=== PATIENT | female | born 1935 | race Caucasian/White ===

== ENCOUNTER 2020-07-31 11:13 | Inpatient (IN) | payer OTHER ==
[~2020-07-31] VITALS: Ht 167.6 cm; Wt 60.4 kg
--- NOTE | ~2020-07-31 | OP ---
[facility] [address] [place] [address] OPERATIVE REPORT Name: NOAM NIXON Room: [address] IN [facility]#: [id number] Admission: 07/31/20 Attend Phys: Ofe Mcknight MD Discharge: Date of : 33 Report #: [id number] THIS REPORT FOR: cc: Chioma Morales Tammy RNP ~ Jagjit Dillon DO DICTATED BY: Moi Langston DO DATE OF SERVICE: 08/01/2020 PREOPERATIVE DIAGNOSIS: Right closed displaced subtrochanteric femur fracture. POSTOPERATIVE DIAGNOSIS: Right closed displaced subtrochanteric femur fracture. PROCEDURE PERFORMED: Surgical fixation of right subtrochanteric femur fracture with long cephalomedullary nail. ORTHOPEDIC IMPLANTS: [place] cephalomedullary nail 11 x 420 mm x 125 degrees with 95 mm lag screw and two distal interlock screws measuring 50 and 57.5 mm. SURGEON: Jagjit Dillon DO ASSISTANTS: Moi Langston DO; Jono Saavedra DO; Madonna Roche DO ANESTHESIA: General. ESTIMATED BLOOD LOSS: 100 mL. DRAINS: None. SPECIMENS: None. COMPLICATIONS: None. CONDITION: The patient is stable. DISPOSITION: PACU and to Med/Surg telemetry floor. ANTIBIOTICS: A 2 g Ancef IV piggyback prior to the procedure. INDICATIONS FOR PROCEDURE: The patient is a pleasant 85-year-old female who had a fall at home sustaining a right hip fracture. She was evaluated in the Emergency Department where the x-rays demonstrated fracture. She was admitted for further care. She was cleared by Medicine and Cardiology team prior to surgery. She was informed of the risks, benefits, indication, and complications [address] [address] OPERATIVE REPORT Name: NOAM NIXON Room: [address] [facility].#: [id number] Admission: 07/31/20 Attend Phys: Ofe Mcknight MD Discharge: Date of : 34 Report #: [id number] associated with surgery including but not limited to infection, wound healing complications, nonunion, malunion, rotational abnormalities, leg length discrepancy, hardware pain, need for extended antibiotics, need for revision surgery, DVT, PE, complications with anesthesia, even and other possibilities. The patient demonstrated good understanding and wanted to proceed with surgery. Consent was signed. OPERATIVE FINDINGS: Multiplanar evaluation with intraoperative fluoroscopy demonstrated a three-part subtrochanteric femur fracture that was able to be reduced and nailed appropriately intraoperatively. DESCRIPTION OF PROCEDURE: I met with the patient in the preoperative suite and the correct right lower extremity was marked. The patient was taken to the operating room, given general anesthetic. She was then transferred to the [place] fracture table and positioned in the boot and stirrup on the right side and well-leg levine on the left side as well as a peroneal post. At this point, with the patient secured, intraoperative fluoroscopy confirmed adequate reduction of the fracture in a closed manner. Now, the right lower extremity was sterilely prepped and draped in standard fashion. At this point, a surgical timeout was completed, indicating correct patient, operative site, procedure to be performed. All in the room were in agreement and would like to proceed. Marked out standard proximal incision just proximal to the greater trochanter and skin incision was made with a 10-blade and then dissection was taken down to the level of the tensor fascia to the greater trochanter. Meraz scissors was utilized to open up the glutes in line with the incision. The starting awl was then positioned under C-arm fluoroscopy and the opening starting point was made. A ball-tipped guidewire was then passed down the awl, at this point measured for the nail and 420 mm was found to be appropriate. We began to ream sequentially starting with a 10 mm reamer up to a 13 mm reamer for the final size-11 nail. Next, the opening reamer was utilized proximally. At this point, the final nail was opened and passed on the back table and connected to the alignment jig and then passed down the femur over the guidewire. Confirmed adequate placement of the nail with fluoroscopy. Next, the ball-tipped guidewire was removed, used the double sleeve for the lag screw. Skin was incised and dissection taken down to the level of the lateral femur. With the double sleeve guide in place, the lag screw guidewire was then positioned, confirmed appropriate length. The reamer was then utilized to 95 mm and finally a 95 mm lag screw was positioned. Next compressed the fracture through the alignment guide and then the set screw was fixated tightly. At this point, proceeded to place the distal interlocks with a perfect poarch technique. Positioned two distal interlocks in the standard fashion, cutting the skin, drilling and measuring for the 50 and 57.5 mm screws. Final C-arm fluoroscopy images were taken. The wounds were all thoroughly irrigated after the alignment jig was removed. Closed the deep fascia with 0 Vicryl in a [id number] fashion. Next, the subcutaneous tissue was closed with a 2-0 [place] [address] OPERATIVE REPORT Name: NOAM NIXON Room: [address]#: [id number] Admission: 07/31/20 Attend Phys: Ofe Mcknight MD Discharge: Date of : 33 Report #: [id number] skin uday were utilized. Dressing consisted of Xeroform, 4 x 4 gauze, ABDs and Medipore tape for compressive dressing. The patient was awakened from anesthesia and transferred to PACU in stable condition. ATTESTATION: Dr. Dillon was present throughout all critical aspects of the case. POSTOPERATIVE CARE: The patient will be 50% weightbearing. She will work with the physical therapy and occupational therapy teams in order to make a safe discharge plan. DVT prophylaxis with mechanical and aspirin 325 mg b.i.d. By: 0944 1010Alaanna Dillon DO /nt
[2020-07-31 11:15] VITALS: BP 122/87
[2020-07-31] MEDS ORDERED: OMEPRAZOLE 20 M20 M1 PO (11:25)
[2020-07-31] MEDS ORDERED: BLADDER CONTROL MED (11:26)
[2020-07-31] MEDS ORDERED: LEVO-T75 MCG PO (11:26)
[2020-07-31 11:56] LABS: ABSOLUTE BASOPHILS 0.1 thou/uL (0.0-0.2); ABSOLUTE EOSINOPHILS 0.1 thou/uL (0.0-0.7); ABSOLUTE LYMPHOCYTES 2.4 thou/uL (0.8-5.3); ABSOLUTE MONOCYTES 0.5 thou/uL (0.0-1.2); ABSOLUTE NEUTROPHILS 7.3 thou/uL (1.6-8.1); BASOPHILS 0.9 %; EOSINOPHILS 1.4 %; HEMATOCRIT 39.8 % (37.0-47.0); HEMOGLOBIN 13.2 gm/dL (12.0-15.0); MCH 31.9 pg (26.0-34.0); MCHC 33.1 g/dL (28.0-37.0); MCV 96.3 fL (80.0-100.0); MONOCYTES 5.2 %; MPV 8.6 fl. (7.2-11.1); NUCLEATED RBCS 0 /100WBC; PLATELET COUNT* 182 thou/uL (150-400); POLYS 69.5 %; RBC 4.13 mil/uL (4.20-5.00); WBC 10.5 thou/uL (4.0-11.0)
[2020-07-31 12:04] LABS: CALCIUM 8.8 mg/dL (8.5-10.1); CREATININE 1.2 mg/dL (0.6-1.3); POTASSIUM 4.1 mmol/L (3.5-5.1)
[2020-07-31 12:08] LABS: ALBUMIN 3.2 g/dL (3.4-5.0); APTT 22.8 Seconds (25.0-31.3); PROTIME 10.8 Seconds (9.20-11.50); TOTAL BILIRUBIN 0.4 mg/dL (<0.1-1.0); TOTAL PROTEIN 7.5 g/dL (6.4-8.2)
[2020-07-31 12:23] LABS: URINE BILIRUBIN NEGATIVE (Negative); URINE BLOOD TRACE (Negative); URINE CLARITY CLEAR; URINE COLOR YELLOW; URINE GLUCOSE-RANDOM NEGATIVE (Negative); URINE KETONES NEGATIVE (Negative); URINE LEUKOCYTES-REFLEX NEGATIVE (Negative); URINE NITRITE-REFLEX NEGATIVE (Negative); URINE PROTEIN NEGATIVE (Negative); URINE SPECIFIC GRAVITY 1.025 (1.005-1.030); URINE UROBILINOGEN 0.2 E.U./dl (0.2-1.0)
--- NOTE | 2020-07-31 15:04 | EKG ---
[place] [address] ELECTROCARDIOGRAM REPORT Name: NOAM NIXON Room: [place] [address] ADM IN [facility].#: [id number] Admission: 07/31/20 Attend Phys: Ofe Mcknight, Discharge: Date of : 33 Date of Service: 07/31/20 1141 Report #: [id number] THIS REPORT FOR: //name// [facility] ED Test Date: 2020-07-31 Test Time: 11:41:20 Pat Name: NOAM NIXON Department: Room: [facility] Gender: F Qa Tester: GLADIS : 1935 Requested By: Melia Rich Order Number: [id number] MD: Prasanth Croft Measurements Intervals [place] Rate: 60 P: 74 PA: 175 QRS: 25 QRSD: 86 T: 65 QT: 427 QTc: 427 Interpretive Statements Sinus rhythm ST elevation, consider early repolarization No previous ECG available for comparison Electronically Signed On 07-31-2020 15:04:40 DRESS CUTTER by Prasanth Croft [email or web address] <ELECTRONICALLY SIGNED> By: Prasanth Croft MD, [facility] 07/31/20 1504 1141 1141 Prasanth Croft MD, [facility] /EPI
[2020-07-31 15:32] VITALS: BP 134/74
[2020-07-31 15:45] VITALS: BP 142/79
[2020-07-31 20:00] VITALS: BP 115/56
[2020-08-01 00:13] VITALS: BP 108/61
[2020-08-01 04:31] VITALS: BP 85/41
[2020-08-01 07:26] VITALS: BP 85/41
[2020-08-01 11:34] VITALS: BP 105/33
[2020-08-01 16:38] VITALS: BP 110/47
[2020-08-01 23:40] VITALS: BP 117/57
[2020-08-02 04:00] VITALS: BP 129/62
[2020-08-02 08:09] LABS: HEMATOCRIT 25.7 % (37.0-47.0)
[2020-08-02 08:12] LABS: HEMOGLOBIN 8.5 gm/dL (12.0-15.0)
[2020-08-02 11:44] VITALS: BP 100/57
[2020-08-02 16:14] VITALS: BP 134/70
[2020-08-02 20:48] VITALS: BP 137/56
[2020-08-03 00:12] VITALS: BP 134/64
[2020-08-03 04:23] LABS: ABSOLUTE LYMPHOCYTES 1.2 thou/uL (0.8-5.3); ABSOLUTE MONOCYTES 0.8 thou/uL (0.0-1.2); ABSOLUTE NEUTROPHILS 6.7 thou/uL (1.6-8.1); BASOPHILS 0.5 %; EOSINOPHILS 0.3 %; HEMATOCRIT 23.8 % (37.0-47.0); HEMOGLOBIN 8.1 gm/dL (12.0-15.0); LYMPHOCYTES 13.3 %; MCH 32.2 pg (26.0-34.0); MCHC 33.9 g/dL (28.0-37.0); MONOCYTES 8.6 %; MPV 9.4 fl. (7.2-11.1); NUCLEATED RBCS 0 /100WBC; POLYS 77.3 %; RDW-CV 13.1 % (10.5-14.5); WBC 8.7 thou/uL (4.0-11.0)
[2020-08-03 04:45] LABS: ALBUMIN 2.1 g/dL (3.4-5.0); CALCIUM 8.2 mg/dL (8.5-10.1); CREATININE 1.1 mg/dL (0.6-1.3); POTASSIUM 4.2 mmol/L (3.5-5.1); TOTAL BILIRUBIN 0.4 mg/dL (<0.1-1.0); TOTAL PROTEIN 5.6 g/dL (6.4-8.2)
[2020-08-03 04:49] VITALS: BP 135/60
[2020-08-03 05:04] LABS: PLATELET COUNT* 106 thou/uL (150-400)
[2020-08-03 08:00] VITALS: BP 118/53
[2020-08-03 13:51] VITALS: BP 122/41
[2020-08-03 16:17] VITALS: BP 138/54
[2020-08-04 00:19] VITALS: BP 133/52
[2020-08-04 04:41] VITALS: BP 126/66
[2020-08-04 08:00] VITALS: BP 124/52
[2020-08-04] MEDS ORDERED: TRAMADOL 50 MG50 MG PO (08:35)
[2020-08-04] MEDS ORDERED: ELIQUIS5 MG PO (08:35)
[2020-08-04] MEDS ORDERED: HYDROCODON-ACE1 EAC7 PO (08:35)
[2020-08-04] MEDS ORDERED: PROTONIX40 M2 PO (10:17)
[2020-08-04 15:50] VITALS: BP 139/50
[2020-08-04 19:50] VITALS: BP 152/83
[2020-08-05 07:46] VITALS: BP 127/64
[2020-08-05 08:31] LABS: ABSOLUTE BASOPHILS 0.1 thou/uL (0.0-0.2); ABSOLUTE EOSINOPHILS 0.3 thou/uL (0.0-0.7); ABSOLUTE LYMPHOCYTES 1.3 thou/uL (0.8-5.3); ABSOLUTE MONOCYTES 0.7 thou/uL (0.0-1.2); ABSOLUTE NEUTROPHILS 6.3 thou/uL (1.6-8.1); EOSINOPHILS 3.8 %; HEMATOCRIT 23.1 % (37.0-47.0); HEMOGLOBIN 7.7 gm/dL (12.0-15.0); MCH 31.6 pg (26.0-34.0); MCHC 33.4 g/dL (28.0-37.0); MCV 94.7 fL (80.0-100.0); MONOCYTES 7.8 %; MPV 8.5 fl. (7.2-11.1); NUCLEATED RBCS 0 /100WBC; PLATELET COUNT* 156 thou/uL (150-400); POLYS 72.4 %; RBC 2.44 mil/uL (4.20-5.00); RDW-CV 12.7 % (10.5-14.5); WBC 8.7 thou/uL (4.0-11.0)
[2020-08-05 08:38] LABS: CALCIUM 8.7 mg/dL (8.5-10.1); CREATININE 0.9 mg/dL (0.6-1.3)
[2020-08-05 15:48] VITALS: BP 139/65
[2020-08-05 19:30] VITALS: BP 144/74
[2020-08-06 08:00] VITALS: BP 169/68
[2020-08-06 15:50] VITALS: BP 129/57
[2020-08-06 20:20] VITALS: BP 132/66
[2020-08-07 07:50] VITALS: BP 129/64
== END 2020-08-07 15:10 | DRG 481 ==
LOC: M.ERS 11:13 → M.ORTHSURG 13:17 → M.TBA-ER 13:17 → M.2W 15:41 → M.ORTHSURG 08-03 14:36
PROVIDERS: Internal Medicine; Orthopaedic Surgery; Physician Assistant; ADMIT Internal Medicine; ATTEND Internal Medicine
PROC: 0QS606Z Reposition Right Upper Femur with Intramedullary Internal Fixation Device, Open Approach (ICD-10-PCS; principal; 2020-08-01)
DX: M80.051A Age-related osteoporosis with current pathological fracture, right femur, initial encounter for fracture (principal); D62 Acute posthemorrhagic anemia; E44.0 Moderate protein-calorie malnutrition; J98.11 Atelectasis; E03.9 Hypothyroidism, unspecified; I65.21 Occlusion and stenosis of right carotid artery; K44.9 Diaphragmatic hernia without obstruction or gangrene; E89.0 Postprocedural hypothyroidism; K21.9 Gastro-esophageal reflux disease without esophagitis; Z68.21 Body mass index [BMI] 21.0-21.9, adult; Z79.899 Other long term (current) drug therapy; Z20.822 Contact with and (suspected) exposure to COVID-19

== ENCOUNTER 2020-08-07 13:57 | Inpatient (IN) | payer OTHER ==
[~2020-08-07] VITALS: Ht 165.1 cm; Wt 60.6 kg
--- NOTE | ~2020-08-07 | PROC ---
[address] [address] PROCEDURE REPORT Name: NOAM NIXON Room: [address] IN ..#: [id number] Admission: 08/07/20 Attend Phys: Diego Etienne MD Discharge: Date of : 33 Report #: [id number] THIS REPORT FOR: cc: Chioma Morales Tammy RNP ~ [facility],Medical Records Staff For GI report, Please see the Provation report in Perceptive 7 content. By: 1439Medical Records Staff [facility] /MILVIA
[~2020-08-07 13:57] MED LIST: BLADDER CONTROL MED; ELIQUIS5 MG PO; HYDROCODON-ACE1 EAC7 PO; LEVO-T75 MCG PO; OMEPRAZOLE 20 M20 M1 PO; PROTONIX40 M2 PO; TRAMADOL 50 MG50 MG PO
[2020-08-07 15:30] VITALS: BP 117/47
[2020-08-07 19:34] VITALS: BP 121/62
[2020-08-08 04:57] LABS: ABSOLUTE BASOPHILS 0.1 thou/uL (0.0-0.2); ABSOLUTE EOSINOPHILS 0.4 thou/uL (0.0-0.7); ABSOLUTE LYMPHOCYTES 2.2 thou/uL (0.8-5.3); ABSOLUTE MONOCYTES 1.1 thou/uL (0.0-1.2); ABSOLUTE NEUTROPHILS 5.9 thou/uL (1.6-8.1); BASOPHILS 0.6 %; EOSINOPHILS 4.4 %; HEMATOCRIT 21.7 % (37.0-47.0); HEMOGLOBIN 7.3 gm/dL (12.0-15.0); LYMPHOCYTES 22.7 %; MCH 31.9 pg (26.0-34.0); MCHC 33.7 g/dL (28.0-37.0); MCV 94.7 fL (80.0-100.0); MONOCYTES 11.6 %; MPV 8.7 fl. (7.2-11.1); NUCLEATED RBCS 0 /100WBC; PLATELET COUNT* 230 thou/uL (150-400); POLYS 60.7 %; RBC 2.29 mil/uL (4.20-5.00); RDW-CV 12.9 % (10.5-14.5); WBC 9.8 thou/uL (4.0-11.0)
[2020-08-08 05:00] LABS: CALCIUM 9.4 mg/dL (8.5-10.1); CREATININE 1.2 mg/dL (0.6-1.3); POTASSIUM 4.2 mmol/L (3.5-5.1)
[2020-08-08 07:45] VITALS: BP 129/68
[2020-08-08 20:00] VITALS: BP 102/50
[2020-08-09 20:00] VITALS: BP 100/47
[2020-08-10] VITALS (7 sets, daily range): BP systolic 79–108; BP diastolic 38–53
[2020-08-10 11:41] LABS: HEMATOCRIT 23.5 % (37.0-47.0); HEMOGLOBIN 7.7 gm/dL (12.0-15.0); MCH 31.1 pg (26.0-34.0); MCHC 32.6 g/dL (28.0-37.0); MCV 95.3 fL (80.0-100.0); MPV 8.2 fl. (7.2-11.1); RBC 2.47 mil/uL (4.20-5.00); RDW-CV 13.1 % (10.5-14.5); WBC 11.6 thou/uL (4.0-11.0)
[2020-08-10 11:59] LABS: ALBUMIN 2.3 g/dL (3.4-5.0); CALCIUM 9.1 mg/dL (8.5-10.1); CREATININE 1.1 mg/dL (0.6-1.3); TOTAL BILIRUBIN 0.7 mg/dL (<0.1-1.0); TOTAL PROTEIN 5.9 g/dL (6.4-8.2)
[2020-08-11 08:00] VITALS: BP 115/49
[2020-08-11 19:00] VITALS: BP 108/53
[2020-08-12 06:04] LABS: MCH 31.2 pg (26.0-34.0); MCHC 32.3 g/dL (28.0-37.0); MCV 96.3 fL (80.0-100.0); MPV 8.4 fl. (7.2-11.1); RBC 2.05 mil/uL (4.20-5.00); RDW-CV 13.3 % (10.5-14.5); WBC 11.1 thou/uL (4.0-11.0)
[2020-08-12 06:37] LABS: CALCIUM 8.1 mg/dL (8.5-10.1); CREATININE 1.2 mg/dL (0.6-1.3); POTASSIUM 3.7 mmol/L (3.5-5.1)
[2020-08-12 06:45] LABS: HEMATOCRIT 19.8 % (37.0-47.0); HEMOGLOBIN 6.4 gm/dL (12.0-15.0)
[2020-08-12 08:00] VITALS: BP 99/41
[2020-08-12 10:53] VITALS: BP 100/37; BP 108/38; BP 109/44; BP 80/46; BP 96/35
[2020-08-12 15:59] LABS: HEMATOCRIT 28.1 % (37.0-47.0)
[2020-08-12 16:00] LABS: HEMOGLOBIN 9.1 gm/dL (12.0-15.0)
[2020-08-12 19:45] VITALS: BP 104/46
[2020-08-13 04:52] LABS: ABSOLUTE BASOPHILS 0.1 thou/uL (0.0-0.2); ABSOLUTE EOSINOPHILS 0.3 thou/uL (0.0-0.7); ABSOLUTE LYMPHOCYTES 1.9 thou/uL (0.8-5.3); ABSOLUTE MONOCYTES 1.1 thou/uL (0.0-1.2); ABSOLUTE NEUTROPHILS 9.7 thou/uL (1.6-8.1); BASOPHILS 0.7 %; HEMATOCRIT 23.4 % (37.0-47.0); HEMOGLOBIN 7.8 gm/dL (12.0-15.0); LYMPHOCYTES 14.2 %; MCH 30.6 pg (26.0-34.0); MCHC 33.2 g/dL (28.0-37.0); MCV 92.1 fL (80.0-100.0); MONOCYTES 8.7 %; MPV 8.3 fl. (7.2-11.1); NUCLEATED RBCS 0 /100WBC; PLATELET COUNT* 286 thou/uL (150-400); POLYS 74.4 %; RBC 2.54 mil/uL (4.20-5.00); RDW-CV 14.4 % (10.5-14.5); WBC 13.1 thou/uL (4.0-11.0)
[2020-08-13 08:56] VITALS: BP 105/60
[2020-08-13 12:47] LABS: URINE BLOOD 1+ (Negative); URINE CLARITY CLEAR; URINE COLOR YELLOW; URINE GLUCOSE-RANDOM NEGATIVE (Negative); URINE KETONES NEGATIVE (Negative); URINE LEUKOCYTES-REFLEX 1+ (Negative); URINE NITRITE-REFLEX NEGATIVE (Negative); URINE PROTEIN 1+ (Negative)
[2020-08-13 12:48] LABS: ICTOTEST (BILI CONFIRMATORY) Negative (Negative); URINE BILIRUBIN 1+ (Negative)
[2020-08-13 12:57] LABS: SQUAMOUS 0-3 Few /LPF (0-3); URINE RBC 3-10 Few /HPF (0-2); URINE WBC-REFLEX 6-15 Few /HPF (0-5)
[2020-08-13 12:58] LABS: BACTERIA-REFLEX 1-9 Few /HPF (None Seen); CASTS None Seen /LPF (None Seen); CRYSTALS None Seen /LPF (None Seen); MUCUS 0-3 Light strn/LPF (None Seen)
[2020-08-13 20:30] VITALS: BP 100/56
[2020-08-14 07:39] VITALS: BP 102/48
[2020-08-14 09:12] LABS: HEMATOCRIT 24.9 % (37.0-47.0); HEMOGLOBIN 8.2 gm/dL (12.0-15.0); MCH 30.9 pg (26.0-34.0); MCV 93.8 fL (80.0-100.0); MPV 8.3 fl. (7.2-11.1); RBC 2.66 mil/uL (4.20-5.00); RDW-CV 14.2 % (10.5-14.5)
[2020-08-14 19:35] VITALS: BP 127/49
[2020-08-15 04:48] LABS: HEMATOCRIT 24.4 % (37.0-47.0); MCH 30.9 pg (26.0-34.0); MCHC 32.7 g/dL (28.0-37.0); MCV 94.4 fL (80.0-100.0); MPV 8.4 fl. (7.2-11.1); RBC 2.58 mil/uL (4.20-5.00); WBC 10.1 thou/uL (4.0-11.0)
[2020-08-15 05:06] LABS: ALBUMIN 1.9 g/dL (3.4-5.0); CALCIUM 8.3 mg/dL (8.5-10.1); CREATININE 1.1 mg/dL (0.6-1.3); MAGNESIUM 1.8 mg/dL (1.8-2.4); TOTAL BILIRUBIN 0.6 mg/dL (<0.1-1.0); TOTAL PROTEIN 6.3 g/dL (6.4-8.2)
[2020-08-15 06:19] VITALS: BP 108/51
[2020-08-15 07:53] VITALS: BP 114/45
[2020-08-15 20:00] VITALS: BP 106/53
[2020-08-16 06:30] VITALS: BP 115/57
[2020-08-16 08:23] VITALS: BP 113/51
[2020-08-16 20:00] VITALS: BP 130/61
[2020-08-17 05:12] LABS: HEMATOCRIT 26.2 % (37.0-47.0); HEMOGLOBIN 8.5 gm/dL (12.0-15.0); MCH 30.9 pg (26.0-34.0); MCHC 32.5 g/dL (28.0-37.0); MPV 8.2 fl. (7.2-11.1); RBC 2.76 mil/uL (4.20-5.00); RDW-CV 14.2 % (10.5-14.5); WBC 8.3 thou/uL (4.0-11.0)
[2020-08-17 05:42] LABS: CALCIUM 8.4 mg/dL (8.5-10.1); CREATININE 1.1 mg/dL (0.6-1.3); MAGNESIUM 1.7 mg/dL (1.8-2.4); POTASSIUM 4.2 mmol/L (3.5-5.1); TOTAL BILIRUBIN 0.5 mg/dL (<0.1-1.0); TOTAL PROTEIN 6.5 g/dL (6.4-8.2)
[2020-08-17 06:30] VITALS: BP 137/67
[2020-08-17 08:00] VITALS: BP 131/58
[2020-08-17 19:38] VITALS: BP 126/65
[2020-08-18 07:34] VITALS: BP 113/52
--- NOTE | 2020-08-18 18:06 | PATH ---
[address] [address] PATHOLOGY RPT PROCEDURE Name: MIRANDA NIXON Room: [address] IN M.R.#: [id number] Admission: 08/07/20 Date of : 33 Discharge: Report #: [id number] Path Case #: [id number] [facility] Accession Number: [id number] . 01 Material submitted: . gastrointestinal site - GASTRIC BIOPSY FOR GASTRITIS . 01 Clinical history: . EGD IN OR S/P RIGHT ORIF . 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 (ROSLYN:pit 08/18/2020) . Special stain H. pylori immuno QTP 08/18/2020 1534 Local . 02 Electronically signed: . Ignacio Corcoran MD, Pathologist NPI- [id number] . 01 Gross description: . The specimen is received in formalin, labeled "Miranda Nixon, gastric biopsy". Received are two segments of pale pacheco tissue measuring 0.1 and 0.4 cm in maximum dimensions. The specimen is submitted entirely in cassette A1. (CAA; 08/17/2020) QAC/QAC 08/17/2020 1123 Local . 02 Pathologist provided ICD-10: K29.50 . 02 CPT . 635391, E06070 Specimen Comment: A courtesy copy of this report has been sent to [phone] Specimen Comment: Report sent to Performed at: [address], [place], [place] [id number] MD Zach Randall MD Phone: [phone] Performed at: [address] [address] [place] [id number] MD Ignacio Corcoran MD Phone: [phone]
[2020-08-18 20:00] VITALS: BP 135/66
[2020-08-19 04:22] LABS: CALCIUM 8.2 mg/dL (8.5-10.1); CREATININE 1.2 mg/dL (0.6-1.3)
[2020-08-19 04:27] LABS: HEMATOCRIT 24.5 % (37.0-47.0); HEMOGLOBIN 8.1 gm/dL (12.0-15.0); MPV 8.1 fl. (7.2-11.1); RBC 2.6 mil/uL (4.20-5.00); RDW-CV 13.9 % (10.5-14.5); WBC 7.3 thou/uL (4.0-11.0)
[2020-08-19 07:20] VITALS: BP 120/44
[2020-08-19 19:55] VITALS: BP 133/54
[2020-08-20 07:48] VITALS: BP 120/56
[2020-08-20 20:05] VITALS: BP 126/61
[2020-08-21 06:38] VITALS: BP 122/56
[2020-08-21 08:16] VITALS: BP 124/54
[2020-08-21 14:29] VITALS: BP 123/54
[2020-08-21 14:31] VITALS: BP 132/59
[2020-08-21 14:32] VITALS: BP 85/52
[2020-08-21 19:34] VITALS: BP 137/65
[2020-08-22 08:28] VITALS: BP 117/60
[2020-08-22 09:40] VITALS: BP 117/60; BP 72/33; BP 96/47
[2020-08-22 19:00] VITALS: BP 133/52
[2020-08-22 19:02] VITALS: BP 116/59
[2020-08-22 19:04] VITALS: BP 82/55
[2020-08-23 07:50] VITALS: BP 126/60
--- NOTE | 2020-08-23 10:38 | CON ---
[address] [address] CONSULTATION Name: NIXON,NOAM Mary Room: [address] IN ..#: [id number] Admission: 08/07/20 Attend Phys: Diego Etienne MD Discharge: Date of : 34 Report #: [id number] THIS REPORT FOR: cc: Chioma Morales Tammy RNP ~ Valentín Galeana MD [facility] CARDIOLOGY CONSULT INDICATION: Orthostatic hypotension. HISTORY OF PRESENT ILLNESS: The patient is a very pleasant 85-year-old white female who was initially admitted to the hospital on 07/31/2020 with hip fracture. The patient has been having problems with hypotension that appears to be orthostatic. During her hospitalization, she has been transferred to rehabilitation for further strengthening and ambulation. Her efforts have been somewhat hampered here with recurrence of her orthostasis. She denies syncope. She is not having any chest pain or shortness of breath. PAST MEDICAL HISTORY: 1. Recent right hip fracture, status post repair. 2. GERD. 3. Removal of breast tumors from the left breast. 4. Thyroidectomy. 5. Hemorrhoidectomy. FAMILY HISTORY: Noncontributory. SOCIAL HISTORY: The patient does not drink alcohol. She is a nonsmoker. CURRENT MEDICATIONS: Midodrine 10 mg t.i.d., melatonin 10 mg at bedtime, oxybutynin 5 mg at bedtime, aspirin 81 mg daily, MiraLax 17 grams daily, Senokot 1 tablet daily, fluticasone as directed, levothyroxine 0.075 mg daily, Protonix 40 mg b.i.d., tramadol 50 mg q.6 hours p.r.n., hydrocodone/acetaminophen one tablet q.4 hours p.r.n., Maalox p.r.n. REVIEW OF SYSTEMS: A 14-point review of systems is significant for weakness, diminished appetite, depression, otherwise as per HPI. PHYSICAL EXAMINATION: VITAL SIGNS: Stable. Blood pressure 117/60, pulse 73 and regular. GENERAL: This is a thin, pleasant, elderly female in no distress. Mood and affect appropriate. HEENT: Head, extraocular muscles intact. Mucous membranes are moist. NECK: Shows no jugular venous distention. CHEST: Reve[place] [address] CONSULTATION Name: NIXONNOAM Room: [address] IN [facility]#: [id number] Admission: 08/07/20 Attend Phys: Diego Etienne MD Discharge: Date of : 34 Report #: [id number] CARDIOVASCULAR: Reveals a regular rhythm, normal S1, S2. I do not appreciate gallop or murmur. ABDOMEN: Reveals normal bowel sounds. The abdomen is soft, nontender. EXTREMITIES: Shows no edema. SKIN: Warm and dry. Orthostatic blood pressures this morning showed the patient to be significantly orthostatic. IMPRESSION AND RECOMMENDATIONS: 1. Orthostatic hypotension. Increase fluid intake. Increase salt intake, midodrine 10 mg t.i.d. is fine. I would schedule this in the morning and then the last dose no later than the late afternoon. If the patient continues to have issues, could consider the addition of Florinef. She does not appear to be on any medications exacerbating her orthostasis at this time, Lower extremity compression garments could be helpful. 2. Recent hip fracture. The patient appears to be recovering fairly well from her hip fracture. 3. Gastroesophageal reflux disease. The patient is on Protonix twice daily presently. 4. History of anemia from blood loss. Hemoglobin presently stable. <ELECTRONICALLY SIGNED> By: Valentín Galeana MD, FACC 08/23/20 1038 1524 [id number] Galeana MD, FACC /nt
[2020-08-23 20:32] VITALS: BP 128/56
[2020-08-24 05:09] LABS: CALCIUM 8.4 mg/dL (8.5-10.1); POTASSIUM 4.1 mmol/L (3.5-5.1)
[2020-08-24 05:18] LABS: HEMOGLOBIN 8.8 gm/dL (12.0-15.0)
[2020-08-24 05:21] LABS: HEMATOCRIT 27.3 % (37.0-47.0); MCH 30.5 pg (26.0-34.0); MCHC 32.2 g/dL (28.0-37.0); MCV 94.7 fL (80.0-100.0); MPV 8.3 fl. (7.2-11.1); RBC 2.88 mil/uL (4.20-5.00); RDW-CV 14.1 % (10.5-14.5); WBC 8.7 thou/uL (4.0-11.0)
[2020-08-24 07:53] VITALS: BP 101/51
[2020-08-24 13:04] VITALS: BP 138/48; BP 78/45; BP 99/54
--- NOTE | 2020-08-24 16:46 | EKG ---
[place] [address] ELECTROCARDIOGRAM REPORT Name: NOAM NIXON Room: [address] ADM IN M.R.#: [id number] Admission: 08/07/20 Attend Phys: Diego Etienne MD Discharge: Date of : 33 Date of Service: 08/24/20 1237 Report #: [id number] THIS REPORT FOR: //name// [facility] Test Date: 2020-08-24 Test Time: 12:37:54 Pat Name: NOAM NIXON Department: Room: [address] Gender: F [employer] Superintendent: : 1935 Requested By: Diego Etienne Order Number: [id number] Reading MD: Prasanth Croft Measurements Intervals [place] Rate: 69 P: 54 VT: 165 QRS: 25 QRSD: 86 T: 61 QT: 361 QTc: 387 Interpretive Statements Sinus rhythm Compared to ECG 07/31/2020 11:41:20 ST (T wave) deviation no longer present Electronically Signed On 08-24-2020 16:46:03 CDT by Prasanth Croft [email or web address] <ELECTRONICALLY SIGNED> By: Prasanth Croft MD, FAC 08/24/20 1646 1237 1237 Prasanth Croft MD, [facility] /EPI
[2020-08-24 19:00] VITALS: BP 147/59
[2020-08-24 19:02] VITALS: BP 143/64
[2020-08-24 19:04] VITALS: BP 114/56
[2020-08-25 07:30] VITALS: BP 106/45; BP 79/46; BP 98/44
[2020-08-25 12:01] VITALS: BP 134/56
[2020-08-25 19:00] VITALS: BP 137/40
[2020-08-25 19:02] VITALS: BP 126/51
[2020-08-25 19:04] VITALS: BP 94/48
[2020-08-26 05:04] LABS: HEMATOCRIT 24.8 % (37.0-47.0); HEMOGLOBIN 8.1 gm/dL (12.0-15.0); MCH 30.9 pg (26.0-34.0); MCHC 32.7 g/dL (28.0-37.0); MCV 94.5 fL (80.0-100.0); MPV 8.4 fl. (7.2-11.1); RBC 2.63 mil/uL (4.20-5.00); RDW-CV 14.3 % (10.5-14.5); WBC 8.3 thou/uL (4.0-11.0)
[2020-08-26 05:09] LABS: CALCIUM 8.3 mg/dL (8.5-10.1); POTASSIUM 3.8 mmol/L (3.5-5.1)
[2020-08-26 08:37] VITALS: BP 123/49
[2020-08-26 19:00] VITALS: BP 129/49
[2020-08-27 08:10] VITALS: BP 117/50
[2020-08-27 20:00] VITALS: BP 159/57
[2020-08-28 07:30] VITALS: BP 133/58
[2020-08-28 19:54] VITALS: BP 143/70
[2020-08-29 08:00] VITALS: BP 129/62
[2020-08-29 20:04] VITALS: BP 168/80
[2020-08-30 03:48] LABS: HEMOGLOBIN 8.5 gm/dL (12.0-15.0); MCH 30.4 pg (26.0-34.0); MCHC 32.6 g/dL (28.0-37.0); MCV 93.4 fL (80.0-100.0); RBC 2.78 mil/uL (4.20-5.00); RDW-CV 14.2 % (10.5-14.5); WBC 7.2 thou/uL (4.0-11.0)
[2020-08-30 04:26] LABS: ALBUMIN 2.2 g/dL (3.4-5.0); CALCIUM 7.9 mg/dL (8.5-10.1); CREATININE 0.9 mg/dL (0.6-1.3); MAGNESIUM 1.6 mg/dL (1.8-2.4); POTASSIUM 3.4 mmol/L (3.5-5.1); TOTAL BILIRUBIN 0.4 mg/dL (<0.1-1.0); TOTAL PROTEIN 6.7 g/dL (6.4-8.2)
[2020-08-30 08:00] VITALS: BP 135/58
[2020-08-30 19:50] VITALS: BP 143/74
[2020-08-31 08:00] VITALS: BP 157/70
[2020-08-31 19:00] VITALS: BP 140/65
[2020-09-01 07:20] VITALS: BP 118/61
[2020-09-01 12:00] VITALS: BP 101/52; BP 131/92; BP 143/56
[2020-09-01 19:00] VITALS: BP 138/53; BP 149/62; BP 90/53
[2020-09-02 07:20] VITALS: BP 106/57; BP 142/66; BP 150/69
[2020-09-02 08:48] LABS: HEMATOCRIT 29.4 % (37.0-47.0); HEMOGLOBIN 9.5 gm/dL (12.0-15.0); MCH 30.5 pg (26.0-34.0); MCHC 32.5 g/dL (28.0-37.0); RBC 3.12 mil/uL (4.20-5.00); RDW-CV 14.6 % (10.5-14.5); WBC 8.8 thou/uL (4.0-11.0)
[2020-09-02 08:53] LABS: CALCIUM 8.8 mg/dL (8.5-10.1); CREATININE 0.8 mg/dL (0.6-1.3); POTASSIUM 3.1 mmol/L (3.5-5.1)
[2020-09-02 19:54] VITALS: BP 162/72
[2020-09-03 08:19] VITALS: BP 138/59
[2020-09-03 11:00] VITALS: BP 129/71; BP 142/74; BP 150/71
[2020-09-03 15:38] VITALS: BP 129/71
[2020-09-03 20:43] VITALS: BP 146/63
[2020-09-03 20:45] VITALS: BP 154/79
[2020-09-03 20:47] VITALS: BP 127/72
[2020-09-04 06:43] VITALS: BP 132/60
[2020-09-04 08:22] VITALS: BP 149/60
[2020-09-04] MEDS ORDERED: OXYBUTYNIN 5 MG5 M2 PO (09:23)
[2020-09-04] MEDS ORDERED: LEVO-T75 MCG PO (09:23)
[2020-09-04] MEDS ORDERED: PROTONIX40 M2 PO (09:23)
[2020-09-04] MEDS ORDERED: ASA81BEC PO (09:23)
[2020-09-04] MEDS ORDERED: HYDROCODON-ACE1 EAC7 PO (09:23)
[2020-09-04] MEDS ORDERED: SENEXON-S 50-81 EACH PO (09:23)
[2020-09-04] MEDS ORDERED: FLONASE 0.05%50 MCG NASAL (09:23)
[2020-09-04] MEDS ORDERED: ELIQUIS5 MG PO (09:23)
[2020-09-04] MEDS ORDERED: MIDODRINE HCL 55 M1 PO (09:23)
[2020-09-04] MEDS ORDERED: MIRALAX17 GM PO (09:23)
[2020-09-04] MEDS ORDERED: FLORINEF ACETA0.1 MG PO (09:23)
[2020-09-04 15:33] VITALS: BP 129/71
[2020-09-04 16:40] VITALS: BP 129/71
== END 2020-09-04 16:30 | disposition home health service (06) | DRG 535 ==
LOC: M.REH 13:57
PROVIDERS: Internal Medicine; Internal Medicine Gastroenterology; ADMIT Physical Medicine & Rehabilitation; ATTEND Physical Medicine & Rehabilitation
PROC: 30233N1 Transfusion of Nonautologous Red Blood Cells into Peripheral Vein, Percutaneous Approach (ICD-10-PCS; principal; 2020-08-12)
PROC: 0DB68ZX Excision of Stomach, Via Natural or Artificial Opening Endoscopic, Diagnostic (ICD-10-PCS; 2020-08-13)
PROC: 5A09357 Assistance with Respiratory Ventilation, Less than 24 Consecutive Hours, Continuous Positive Airway Pressure (ICD-10-PCS; 2020-08-20)
DX: S72.21XA Displaced subtrochanteric fracture of right femur, initial encounter for closed fracture (principal); J18.9 Pneumonia, unspecified organism; E43 Unspecified severe protein-calorie malnutrition; D62 Acute posthemorrhagic anemia; W18.39XA Other fall on same level, initial encounter; K21.9 Gastro-esophageal reflux disease without esophagitis; E89.0 Postprocedural hypothyroidism; I95.1 Orthostatic hypotension; R53.81 Other malaise; K44.9 Diaphragmatic hernia without obstruction or gangrene; K29.70 Gastritis, unspecified, without bleeding; K59.00 Constipation, unspecified; G47.00 Insomnia, unspecified; R07.9 Chest pain, unspecified; Y93.89 Activity, other specified; Y92.89 Other specified places as the place of occurrence of the external cause; Y99.8 Other external cause status; Z79.899 Other long term (current) drug therapy; Z87.891 Personal history of nicotine dependence; Z68.22 Body mass index [BMI] 22.0-22.9, adult